=== PATIENT | female | born 1950 | race Caucasian/White ===

== ENCOUNTER 2018-12-30 21:46 | Observation (INO) | payer MEDICARE, BC ==
[2018-12-30] MEDS ORDERED: ONDANSETRON HCL IV 4 MG/2 ML VIAL IVP ONE (21:57)
[2018-12-30] MEDS ORDERED: 0.9 % SODIUM CHLORIDE 1000ML 1,000 ML IV ONE (21:57)
[2018-12-30] MEDS ORDERED: MORPHINE SULFATE 10 MG/ML VIAL IVP ONE (21:57)
--- NOTE | 2018-12-30 21:58 | Emergency Department Record ---
History of Present Illness - General Stated Complaint: ABDOMINAL PAIN Time Seen by Provider: 12/30/18 21:52 Source: Patient, Family, EMS Mode of Arrival: Stretcher - History of Present Illness Initial Comments: 68 yo female presents with diffuse abdominal pain since this morning. She has nausea but denied vomiting. No diarrhea or bowel movement today. She denies a history of abdominal surgery. 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 She does get very anxious with any type of illness that produces crying and anxiety since the stroke. No fevers. MD Complaint: Abdominal pain -: Days(s) (1) Location: Diffuse Radiation: Other Migration to: Other Severity: Moderate Quality: Cramping Consistency: Constant Improves With: Nothing Worsens With: Nothing Associated Symptoms: Dysuria - Related Data Home Medications Medication Instructions Recorded Confirmed Last Taken Amlodipine Besylate [Norvasc] 10 mg PO DAILY 12/31/18 12/31/18 12/30/18 Cyclobenzaprine HCl [Flexeril] 10 mg PO TID PRN MDD pain 12/31/18 12/31/1812/29 Diazepam [Valium] 5 mg PO Q8H PRN 12/31/18 12/31/18 12/30/18 Duloxetine HCl [Cymbalta] 60 mg PO DAILY 12/31/18 12/31/18 12/30/18 Hydrochlorothiazide [Hctz] 25 mg PO DAILY 12/31/18 12/31/18 12/30/18 Lacosamide [Vimpat] 150 mg PO BID 12/31/18 12/31/18 12/30/18 Magnesium 1 tab PO DAILY 12/31/18 12/31/18 12/30/18 Potassium Chloride 20 meq PO DAILY 12/31/18 12/31/18 12/30/18 Pregabalin (Lyrica) 100Mg Cap 100 mg PO BID 12/31/18 12/31/18 12/30/18 [Lyrica] Sertraline HCl [Zoloft] 25 mg PO DAILY 12/31/18 12/31/18 12/30/18 Allergies Allergy/AdvReac Type Severity Reaction Status Date / Time No Known Drug Allergies Allergy Verified 12/30/18 21:56 Review of Systems Constitutional: Denies: Chills, Fever, Malaise, Weakness Eyes: Denies: Eye discharge ENT: Denies: Congestion, Throat pain Respiratory: Denies: Cough, Dyspnea, Hemoptysis, Stridor, Wheezes Cardiovascular: Denies: Chest pain, Palpitations, Syncope Gastrointestinal: Reports: Abdominal pain, Nausea. Denies: Constipation, Diarrhea, Hematemesis, Vomiting Genitourinary: Reports: Dysuria Musculoskeletal: Reports: Back pain. Denies: Arthralgia Skin: Denies: Bruising, Change in color, Rash Neurological: Reports: Headache (yesterday, none today) Psychiatric: Reports: Anxiety (significant) Hematological/Lymphatic: Denies: Easy bleeding, Easy bruising, Swollen glands Physical Exam - General General Appearance: Alert, Oriented x3, Cooperative, Anxious Limitations: No limitations - Head Head exam: Atraumatic, Normal inspection - Eye Eye exam: Normal appearance, PERRL. negative: Conjunctival injection - ENT ENT exam: Normal exam Ear exam: Normal external inspection Nasal Exam: Normal inspection Mouth exam: Normal external inspection Throat exam: Normal inspection - Neck Neck exam: Normal inspection, Full ROM. negative: Tenderness - Respiratory Respiratory exam: Normal lung sounds bilaterally. negative: Respiratory distress - Cardiovascular Cardiovascular Exam: Regular rate, Normal rhythm, Normal heart sounds - GI/Abdominal GI/Abdominal exam: Soft, Tenderness (inconsistently area of tenderness but very soft, no distension, no R or G, intact bowel sounds). negative: Distended, Guarding, Rebound, Rigid - Rectal Rectal exam: Deferred - exam: Deferred - Extremities Extremities exam: Normal inspection - Back Back exam: Denies: CVA tenderness (R), CVA tenderness (L) - Neurological Neurological exam: Alert, Motor sensory deficit (Right sided weakness) - Psychiatric Psychiatric exam: Anxious - Skin Skin exam: Dry, Intact, Normal color, Warm Course Vital Signs 12/30/18 21:51 Temperature 97.5 F L Pulse Rate [ 74 Pulse Ox Probe] Respiratory 24 Rate Blood Pressure 146/84 [Left Arm] Pulse Ox 100 - Reevaluation(s) Reevaluation #1: Vitals reviewed. No significant abnormalities No fever upon arrival 12/30/18 22:26 12/30/18 23:19 The labs were reviewed. No acute significant changes in the CBC, CMP, or Lipase The Lactic Acid is normal 12/30/18 23:21 The patient is slowly improving but still anxious and some waves of pain. 12/31/18 00:27 The UA is negative for any acute issue She is much improved and feeling better 12/31/18 01:[address] scan of the abdomen report was reviewed. No acute inflammatory process in the abdomen or pelvis Large volume or stool retained in the cecum and right colon with fecalization of the distal small bowel CW stasis. No obstruction. Renal lesions noted and recommended follow up. This was discussed with the patient and her . 12/31/18 01:14 Medical Decision Making - Lab Data Result diagrams: 12/30/18 22:50 12/30/18 22:50 Disposition Disposition: Admit Clinical Impression: Constipation Abdominal pain Qualifiers: Abdominal location: generalized Qualified Code(s): R10.84 - Generalized abdominal pain Nausea & vomiting Qualifiers: Vomiting type: unspecified Vomiting Intractability: intractable Qualified Code( s): R11.2 - Nausea with vomiting, unspecified Disposition: Still a Patient at [facility] Decision to Admit: Admit from ER Decision to Admit Date: 12/31/18 Decision to Admit Time: :34 Condition: (1) Good Time of Disposition: 01:34 Quality - Quality Measures Quality Measures: N/A - Blood Pressure Screening Does Patient Have Any of the Following: Active Dx of HTN Blood Pressure Classification: Normal BP Reading Systolic Measurement: 105 Diastolic Measurement: 48 Screening for High Blood Pressure: Patient Exclusion, Hx of HTN [[id number]]
[2018-12-30] MEDS ORDERED: MORPHINE SULFATE 10 MG/ML VIAL IM ONE (22:25)
[2018-12-30] MEDS ORDERED: ONDANSETRON 4 MG ODT TABLET SL ONE (22:25)
[2018-12-30 22:54] LABS: BASO % 0.4 % (0-6); EOS % 0.1 % (0-6); HEMATOCRIT 41.9 % (35.0-47.0); HEMOGLOBIN 13.8 gm/dl (11.6-16.0); LYMPH % 8.9 % (16-45); MEAN CELL VOLUME 85.7 fl (81-97); MEAN CORPUSCULAR HEMOGLOBIN 28.2 pg (27-33); MEAN CORPUSCULAR HGB CONC 32.9 g/dl (32-36); MEAN PLATELET VOLUME 11.1 fl (7.4-10.4); MONO % 4.1 % (0-9); PLATELET COUNT 266 K/uL (130-400); RED BLOOD COUNT 4.89 M/uL (3.80-5.40); WHITE BLOOD COUNT W/O DIFF 11.2 K/uL (4.2-12.2)
[2018-12-30 23:03] LABS: BLOOD UREA NITROGEN 25 mg/dL (8-23); CREATININE 0.8 mg/dL (0.5-0.9); EST GLOMERULAR FILTRATION RATE > 60 mL/min
[2018-12-30 23:04] LABS: LIPASE 21 U/L (13-60); TOTAL PROTEIN 8.1 g/dL (6.6-8.7)
[2018-12-30 23:05] LABS: PARTIAL THROMBOPLASTIN TIME 23.9 SECONDS (24.5-39.1)
[2018-12-30 23:06] LABS: GLUCOSE,RANDOM 161 mg/dL (74-109)
[2018-12-30 23:08] LABS: ALB/GLOB RATIO 1.4 (1.1-1.8); ALBUMIN 4.7 g/dL (4.0-5.0); ALKALINE PHOSPHATASE 102 U/L (35-104); ALT/SGPT 14 U/L (<33); AST/SGOT 17 U/L (10.0-35.0)
[2018-12-30] MEDS ORDERED: LORAZEPAM 2 MG/ML VIAL IV ONE (23:18)
[2018-12-31 00:10] LABS: URINE APPEARANCE CLEAR; URINE BILIRUBIN NEGATIVE (NEGATIVE); URINE BLOOD NEGATIVE (NEGATIVE); URINE COLOR YELLOW; URINE GLUCOSE (UA) NEGATIVE (NEGATIVE); URINE KETONE NEGATIVE (NEGATIVE); URINE LEUKOCYTE ESTERASE NEGATIVE (NEGATIVE); URINE NITRITE NEGATIVE (NEGATIVE); URINE PROTEIN NEGATIVE (NEGATIVE); URINE UROBILINOGEN 0.2 E.U./dL (0.20 - 1.00)
[2018-12-31] MEDS ORDERED: ONDANSETRON HCL IV 4 MG/2 ML VIAL IVP PRN (02:00)
[2018-12-31] MEDS ORDERED: CYCLOBENZAPRINE 10MG TABLET PO PRN (02:00)
[2018-12-31] MEDS ORDERED: LORAZEPAM 2 MG/ML VIAL IV PRN (02:00)
[2018-12-31] MEDS ORDERED: ACETAMINOPHEN 1,000 MG/100 ML BTL IVPB ONE (02:00)
[2018-12-31] MEDS: 0.9 % SODIUM CHLORIDE 1000ML 1,000 ML IV PRN ×2 (02:39→12:17)
--- NOTE | 2018-12-31 08:14 | CT SCAN REPORT ---
EXAM: CT OF THE ABDOMEN AND PELVIS WITHOUT CONTRAST HISTORY: GENERALIZED ABDOMINAL PAIN BEGINNING TWO DAYS AGO. PAINFUL URINATION. STATUS POST BILATERAL HIP ARTHROPLASTY, CHOLECYSTECTOMY, APPENDECTOMY, HYSTERECTOMY, AND SPINAL FUSION. TECHNIQUE: Helical CT examination of the abdomen and pelvis was performed without intravenous contrast administration. Oral contrast was utilized. Comparison: Single view radiographic examination of the spine dated 06/03/11. FINDINGS: Beam hardening artifact from orthopedic hardware within the spine as well as beam hardening artifact from implanted medication pump in the right gluteal soft tissues mildly limits evaluation. There is minor dependent atelectasis in each lung base. The lung bases are otherwise clear. No pleural or pericardial effusion. There is possible mild calcification of the aortic valve. No suspicious focal abnormality is demonstrated within the liver, spleen, pancreas, adrenal glands nor right kidney. There is a well circumscribed hypodense mass within the posterolateral mid left kidney. This measures 3.0 x 3.2 cm. This has a density ranging between 16 and 27 Hounsfield units. Its evaluation is limited by the presence of artifact. A benign cyst is the most likely etiology. If clinically warranted this could be further evaluated with ultrasound examination. Additionally there is a questionable isodense contour deforming mass versus lobulation arising from the medial lower pole of the left kidney. This measures 7 mm. It it too small for accurate characterization. The gallbladder is surgically absent. No gross biliary ductal dilatation is seen. No definite intraabdominal nor retroperitoneal lymphadenopathy. No abdominal aortic aneurysm. There is a small fat filled periumbilical hernia. No definite pelvic mass, lymphadenopathy, or free pelvic fluid though again, evaluation is limited by beam hardening artifact from bilateral hip prostheses. Evaluation of the urinary bladder is limited. No large urinary bladder mass identified. No free pelvic fluid. No gross bowel dilatation nor bowel wall thickening. There is a moderate to large amount of stool within the colon. There is fecalization of stool within the distal small bowel consistent with stasis. The appendix is surgically absent. Spinal fixation hardware is again noted extending from the visualized mid thoracic level down to the upper sacrum. Bilateral hip protheses are present. Incompletely imaged is an interspinal catheter which extends from the right gluteal region superiorly. On prior radiographic examination this is noted to extend into the thoracic spinal canal at the lower thoracic levels. The implanted pump is demonstrated within the right gluteal soft tissues. No suspicious lytic or blastic bone lesion. IMPRESSION: 1. NO DEFINITE ACUTE ABNORMALITY OF THE ABDOMEN NOR PELVIS THOUGH EVALUATION IS LIMITED, DISCUSSED ABOVE. 2. MODERATE TO LARGE AMOUNT OF STOOL WITHIN THE COLON WITH FECALIZATION OF CONTENTS OF THE DISTAL SMALL BOWEL CONSISTENT WITH STASIS. NO EVIDENCE OF MECHANICAL BOWEL OBSTRUCTION. 3. LOW DENSITY MASS IN THE LEFT KIDNEY LIKELY IS A BENIGN CYST. THERE IS AN ADDITIONAL ISODENSE NODULE ARISING EXOPHYTICALLY FROM THE LOWER POLE OF THE LEFT KIDNEY. THIS IS OF INDETERMINATE ETIOLOGY. IF CLINICALLY WARRANTED THIS COULD BE FURTHER EVALUATED WITH PRE AND POST CONTRAST ADMINISTRATION MRI OR CT EXAMINATION. JOB NUMBER: [id number] [facility]
--- NOTE | 2018-12-31 08:23 | History & Physical ---
History of Present Illness - Date of Service Date of Service for History & Physical: 12/31/18 - History of Present Illness Admitting Diagnosis: nausea, vomiting, and abdominal pain History of Present Illness: 68 yo female presents for abd pain. PMH HTN, CVA with right sided weakness, anxiety/depression. Prior Surgeries: hysterectomy, appendectomy, cholecystectomy , spinal fusion, spinal stimulator, raj hip replacements. 12/30/18 Pt presented to [facility] ER for diffuse abd pain and nausea, denied any vomiting or diarrhea. CT reveals large amt of retained stool and raj kidney cysts (to be followed with repeat CT or MRI by PCP) WBC 11.2, Hgb 13.8, Hct 41.9, Plt 266 PT 10, INT 1, APPT 23.9 Na 143, K 3.4, Cl 103, Anion Gap 16, BUN 25, Cr 0.8, GFR >60, glucose 161, LFTs wnl Lactic Acid 1.7, Lipase 21 UA negative Pt given 1L NS, ativan 0.5mg IVP (pt anxious, tearful and crying in ER), Morphine 5mg OVP x2, 1gm tylneol IVPB, zofran 4mg X2 Admit for abd pain, constipation, and nausea 12/31/18 Pt resting with eyes closed in bed, no acute distress, not tearful on first assessment. Pt reports that she thought she was going home this AM, but updated that CT shows large amount of stool burden and it is suspected as the cause for her generalized abd pain. POC to facilitate several large bowel movements and then D/C home. Pt given MOM with prune juice this AM, if no stool then can given suppository and miralax. Pt has right sided weakness s/p CVA 10/2016, there fore will need q2 turns and right foot elevated off bed. Pt up with gait belt, cane and reports that she has a right leg AFO (ankle/foot orthosis). Pt nursing staff, pt became overwhelmed and anxious. Pt and had reported (during ER visit) that pt become very anxious and tearful since CVA. Ativan changed from IVP to PO. Will continue to monitor progress and pt can d/c after successful bowel evacuation. PCP [facility] Travel Screening - Travel/Exposure Within Last 30 Days Have you traveled within the last 30 days?: No - Travel/Exposure Within Last Year Have you traveled outside the [place] in the last year?: No - Additonal Travel Details Have you been exposed to anyone with a communicable illness?: No - Travel Symptoms Symptom Screening: None Review of Systems Constitutional: Denies: Chills, Fever, Malaise, Weakness Eyes: Denies: Eye discharge ENT: Denies: Congestion, Throat pain Respiratory: Denies: Cough, Dyspnea, Hemoptysis, Stridor, Wheezes Cardiovascular: Denies: Chest pain, Palpitations, Syncope Gastrointestinal: Reports: Abdominal pain, Nausea. Denies: Constipation, Diarrhea, Hematemesis, Vomiting Genitourinary: Reports: Dysuria Musculoskeletal: Reports: Back pain. Denies: Arthralgia Skin: Denies: Bruising, Change in color, Rash Neurological: Reports: Headache (yesterday, none today) Psychiatric: Reports: Anxiety (significant) Hematological/Lymphatic: Denies: Easy bleeding, Easy bruising, Swollen glands Past Medical History - SOCIAL HISTORY Smoking Status: Never smoker Alcohol Use: Occasional Drug Use: None - RESPIRATORY Hx Respiratory Disorders: Yes Hx Sleep Apnea: Yes (central) - CARDIOVASCULAR Hx Cardio Disorders: No - NEURO Hx CVA: Yes - GI Hx GI Disorders: No - Hx Genitourinary Disorders: No - ENDOCRINE Hx Endocrine Disorders: No - PSYCH Hx Psych Problems: Yes Hx Anxiety: Yes - HEMATOLOGY/ONCOLOGY Hx Hematology/Oncology Disorders: No Family Medical History Any Significant Family History?: No H&P Meds/Allergies - Allergies Allergies: Allergies Allergy/AdvReac Type Severity Reaction Status Date / Time No Known Drug Allergies Allergy Verified 12/30/18 21:56 - Home Medications Home Medications Medication Instructions Recorded Confirmed Last Taken Amlodipine Besylate [Norvasc] 10 mg PO DAILY 12/31/18 12/31/18 12/30/18 Cyclobenzaprine HCl [Flexeril] 10 mg PO TID PRN MDD pain 12/31/18 12/31/1812/29 Diazepam [Valium] 5 mg PO Q8H PRN 12/31/18 12/31/18 12/30/18 Duloxetine HCl [Cymbalta] 60 mg PO DAILY 12/31/18 12/31/18 12/30/18 Hydrochlorothiazide [Hctz] 25 mg PO DAILY 12/31/18 12/31/18 12/30/18 Lacosamide [Vimpat] 150 mg PO BID 12/31/18 12/31/18 12/30/18 Magnesium 1 tab PO DAILY 12/31/18 12/31/18 12/30/18 Potassium Chloride 20 meq PO DAILY 12/31/18 12/31/18 12/30/18 Pregabalin (Lyrica) 100Mg Cap 100 mg PO BID 12/31/18 12/31/18 12/30/18 [Lyrica] Sertraline HCl [Zoloft] 25 mg PO DAILY 12/31/18 12/31/18 12/30/18 - Active Medications Active Medications: Current Medications Amlodipine Besylate (Norvasc) 10 mg PO DAILY [facility] Cyclobenzaprine HCl (Flexeril) 10 mg PO TID PRN PRN Reason: ANESTHESIA Duloxetine HCl (Cymbalta) 60 mg PO DAILY [facility] Sodium Chloride () 1,000 mls @ 100 mls/hr IV .Q10H PRN PRN Reason: LARGE VOLUME IV Last Admin: 12/31/18 02:39 Dose: 100 mls/hr Lorazepam (Ativan) 0.5 mg IV Q8H PRN PRN Reason: ANXIETY Magnesium Oxide (Mag Ox) 200 mg PO DAILY [facility] Non-Formulary Medication (Lacosamide [Vimpat]) 150 mg PO BID [facility] Ondansetron HCl (Zofran) 4 mg IVP Q4H PRN PRN Reason: NAUSEA Polyethylene Glycol (Miralax) 17 gm PO DAILY [facility] Potassium Chloride (Klor-Con) 20 meq PO DAILY [facility] Pregabalin (Lyrica) 100 mg PO BID [facility] Sertraline HCl (Zoloft) 25 mg PO DAILY [facility] Physical Exam - Vital Signs Vital Signs: Vital Signs - Last 24 Hrs Temp Pulse Pulse Resp BP Pulse Ox 12/31/18 03:23 67 74 18 12/31/18 02:00 98.1 F 74 18 105/48 95 12/31/18 01:53 78 20 119/65 95 12/31/18 00:49 79 20 118/69 96 12/30/18 23:05 76 20 145/78 99 12/30/18 21:51 97.5 F L 74 24 146/84 100 - General General Appearance: Alert, Oriented x3, Cooperative, No acute distress Limitations: No limitations - Head Head exam: Atraumatic, Normal inspection - Eye Eye exam: Normal appearance, PERRL. negative: Conjunctival injection - ENT ENT exam: Normal exam Ear exam: Normal external inspection Nasal Exam: Normal inspection Mouth exam: Normal external inspection Throat exam: Normal inspection - Neck Neck exam: Normal inspection, Full ROM. negative: Tenderness - Respiratory Respiratory exam: Normal lung sounds bilaterally. negative: Respiratory distress - Cardiovascular Cardiovascular Exam: Regular rate, Normal rhythm, Normal heart sounds, Systolic murmur Peripheral Pulses: 3+: Radial (R), Radial (L), Dorsalis Pedis (R), Dorsalis Pedis (L) - GI/Abdominal GI/Abdominal exam: Soft, Normal bowel sounds, Tenderness (inconsistently area of tenderness but very soft, no distension, no R or G, intact bowel sounds). negative: Distended, Guarding, Rebound, Rigid - Rectal Rectal exam: Deferred - exam: Deferred - Extremities Extremities exam: Normal inspection - Back Back exam: Denies: CVA tenderness (R), CVA tenderness (L) - Neurological Neurological exam: Alert, Motor sensory deficit (Right sided weakness) - Psychiatric Psychiatric exam: Normal affect, Normal mood - Skin Skin exam: Dry, Intact, Normal color, Warm Results - Labs Result Diagrams: 12/30/18 22:50 12/30/18 22:50 Labs Last 24 Hours: Laboratory Results - last 24 hr 12/30/18 12/30/18 12/30/18 22:50 22:50 22:50 WBC 11.2 RBC 4.89 Hgb 13.8 Hct 41.9 MCV 85.7 MCH 28.2 MCHC 32.9 RDW 14.0 Plt Count 266 MPV 11.1 H Neutrophils % 83.0 H Band Neutrophils % 3.0 Lymphocytes % 8.9 L Monocytes % 4.1 Eosinophils % 0.1 Basophils % 0.4 Lymphocytes 10.0 L Monocytes 4.0 Basophils 0.0 Eosinophil Count 0.0 PT 10.0 INR 1.0 APTT 23.9 L Sodium 143 Potassium 3.4 Chloride 103 Carbon Dioxide 24.0 Anion Gap 16.0 BUN 25 H Creatinine 0.8 Estimated GFR > 60 Random Glucose 161 H Lactic Acid Cancelled Calcium 10.6 H Total Bilirubin 0.20 AST 17 ALT 14 Alkaline Phosphatase 102 Total Protein 8.1 Albumin 4.7 Globulin 3.4 Albumin/Globulin Ratio 1.4 Lipase 21 Urine Color Urine Appearance Urine pH Ur Specific [place] Urine Protein Urine Glucose (UA) Urine Ketones Urine Blood Urine Nitrite Urine Bilirubin Urine Urobilinogen Ur Leukocyte Esterase 12/30/18 12/31/18 22:50 00:11 WBC RBC Hgb Hct MCV MCH MCHC RDW Plt Count MPV Neutrophils % Band Neutrophils % Lymphocytes % Monocytes % Eosinophils % Basophils % Lymphocytes Monocytes Basophils Eosinophil Count PT INR APTT Sodium Potassium Chloride Carbon Dioxide Anion Gap BUN Creatinine Estimated GFR Random Glucose Lactic Acid 1.7 Calcium Total Bilirubin AST ALT Alkaline Phosphatase Total Protein Albumin Globulin Albumin/Globulin Ratio Lipase Urine Color Yellow Urine Appearance Clear Urine pH 7.5 Ur Specific [place] 1.015 Urine Protein Negative Urine Glucose (UA) Negative Urine Ketones Negative Urine Blood Negative Urine Nitrite Negative Urine Bilirubin Negative Urine Urobilinogen 0.2 Ur Leukocyte Esterase Negative - Imaging and Cardiology CT scan - chest Status: Report reviewed VTE H&P Assessment - Risk for VTE Risk for VTE: Yes Risk Level: Moderate Risk Assessment Date: 12/31/18 Risk Assessment Time: 09:59 VTE Orders Placed or Will Be Placed: Yes Plan - Detailed Diagnosis and Plan (1) Abdominal pain Current Visit: Yes Status: Acute Qualifiers: Abdominal location: generalized Qualified Code(s): R10.84 - Generalized abdominal pain Base Code: R10.9 - UNSPECIFIED ABDOMINAL PAIN Comment: 12/31/18 -Pt denies abd pain during AM rounding -CT shows large amt of stool burden -pt was given morphine IVP in ER but no pain this AM -starting bowel regimen (2) Constipation Current Visit: Yes Status: Acute Base Code: K59.00 - CONSTIPATION, UNSPECIFIED Comment: 12/31/18 -pt reports small, firm stools for the past several days, no h/o constipation issues -CT shows lg amt stool -given MOM with prune juice this AM, then to have suppository and miralax if not BM (3) Nausea & vomiting Current Visit: Yes Status: Acute Qualifiers: Vomiting type: unspecified Vomiting Intractability: intractable Qualified Code(s): R11.2 - Nausea with vomiting, unspecified Base Code: R11.2 - NAUSEA WITH VOMITING, UNSPECIFIED Comment: 12/31/18 -pt denies N/V this am -tolerating CLD and MOM with prune juice -Zofran PRN available (4) DVT prophylaxis Current Visit: Yes Status: Acute Base Code: [id number] - Comment: 12/31/18 -lovenox 40mg SQ to start tomorrow if pt does not D/C today -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
[2018-12-31] MEDS ORDERED: MAGNESIUM HYDROXIDE 30 ML UDC PO ONE ×2 (08:42→15:13)
[2018-12-31] MEDS ORDERED: BISACODYL 10 MG SUPP RC PRN (09:33)
[2018-12-31] MEDS ORDERED: LORAZEPAM 0.5 MG TABLET PO PRN (09:45)
[2018-12-31] MEDS ORDERED: PREGABALIN (LYRICA) 100MG CAPSULE PO SCH (10:00)
[2018-12-31] MEDS ORDERED: MAGNESIUM OXIDE 400 MG TABLET PO SCH (10:00)
[2018-12-31] MEDS ORDERED: AMLODIPINE BESYLATE 5MG TAB PO SCH (10:00)
[2018-12-31] MEDS ORDERED: DULOXETINE HCL 30 MG CAPSULE.DR PO SCH (10:00)
[2018-12-31] MEDS ORDERED: LACOSAMIDE 150 MG PO SCH (10:00)
[2018-12-31] MEDS ORDERED: POLYETHYLENE GLY 17 GM PACKET PO SCH (10:00)
[2018-12-31] MEDS ORDERED: SERTRALINE HCL 50 MG TABLET PO SCH (10:00)
[2018-12-31] MEDS ORDERED: POTASSIUM CHLORIDE 20 MEQ TABLET PO SCH (10:00)
--- NOTE | 2018-12-31 19:42 | Discharge Summary ---
Providers Discharge Summary Date: 12/31/18 Date of admission: 12/31/18 01:55 Expected Date of Discharge: 12/31/18 Attending physician: JANICE CHAMBERS Primary care physician: RJ BERNSTEIN M.D. Physical Exam - Vital Signs Vital Signs: Vital Signs - Last 24 Hrs Temp Pulse Pulse Resp BP Pulse Ox 12/31/18 18:00 98.4 F 78 16 111/60 96 12/31/18 10:00 98.1 F 75 17 106/58 98 12/31/18 09:00 67 75 17 12/31/18 03:23 67 74 18 12/31/18 02:00 98.1 F 74 18 105/48 95 12/31/18 01:53 78 20 119/65 95 12/31/18 00:49 79 20 118/69 96 12/30/18 23:05 76 20 145/78 99 12/30/18 21:51 97.5 F L 74 24 146/84 100 - General General Appearance: Alert, Oriented x3, Cooperative, No acute distress Limitations: Physical limitation (right sided weakness sp cva) - Head Head exam: Atraumatic, Normal inspection - Eye Eye exam: Normal appearance, PERRL. negative: Conjunctival injection - ENT ENT exam: Normal exam Ear exam: Normal external inspection Nasal Exam: Normal inspection Mouth exam: Normal external inspection Throat exam: Normal inspection - Neck Neck exam: Normal inspection, Full ROM. negative: Tenderness - Respiratory Respiratory exam: Normal lung sounds bilaterally. negative: Respiratory distress - Cardiovascular Cardiovascular Exam: Regular rate, Normal rhythm, Normal heart sounds, Systolic murmur Peripheral Pulses: 3+: Radial (R), Radial (L), Dorsalis Pedis (R), Dorsalis Pedis (L) - GI/Abdominal GI/Abdominal exam: Soft, Normal bowel sounds, Tenderness (inconsistently area of tenderness but very soft, no distension, no R or G, intact bowel sounds). negative: Distended, Guarding, Rebound, Rigid - Rectal Rectal exam: Deferred - exam: Deferred - Extremities Extremities exam: Normal inspection - Back Back exam: Denies: CVA tenderness (R), CVA tenderness (L) - Neurological Neurological exam: Alert, Motor sensory deficit (Right sided weakness) - Psychiatric Psychiatric exam: Normal affect, Normal mood - Skin Skin exam: Dry, Intact, Normal color, Warm Hospitalization - Hospitalization Admission Diagnosis: nausea, vomiting, and abdominal pain - Problem List/Discharge Diagnosis (1) Abdominal pain Current Visit: Yes Status: Acute Discharge Diagnosis: Abdominal location: generalized Qualified Code(s): R10.84 - Generalized abdominal pain Base Code: R10.9 - UNSPECIFIED ABDOMINAL PAIN Comment: 12/31/18 -Pt denies abd pain during AM rounding -CT shows large amt of stool burden -pt was given morphine IVP in ER but no pain this AM -starting bowel regimen -pt had 2 large bms, req d/c home with (2) Constipation Current Visit: Yes Status: Acute Base Code: K59.00 - CONSTIPATION, UNSPECIFIED Comment: 12/31/18 -pt reports small, firm stools for the past several days, no h/o constipation issues -CT shows lg amt stool -given MOM with prune juice this AM, then to have suppository and miralax if no BM -2 lrg bms, d/c (3) Nausea & vomiting Current Visit: Yes Status: Acute Discharge Diagnosis: Vomiting type: unspecified Vomiting Intractability: intractable Qualified Code(s): R11.2 - Nausea with vomiting, unspecified Base Code: R11.2 - NAUSEA WITH VOMITING, UNSPECIFIED Comment: 12/31/18 -pt denies N/V this am -tolerating CLD and MOM with prune juice -Zofran PRN available but not req ad pt tolerating po intake - (4) DVT prophylaxis Current Visit: Yes Status: Acute Base Code: [id number] - Comment: 12/31/18 -lovenox 40mg SQ to start tomorrow if pt does not D/C today -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 PMH HTN, CVA with right sided weakness, anxiety/depression. Prior Surgeries: hysterectomy, appendectomy, cholecystectomy , spinal fusion, spinal stimulator, raj hip replacements. 12/30/18 Pt presented to [facility] ER for diffuse abd pain and nausea, denied any vomiting or diarrhea. CT reveals large amt of retained stool and raj kidney cysts (to be followed with repeat CT or MRI by PCP) WBC 11.2, Hgb 13.8, Hct 41.9, Plt 266 PT 10, INT 1, APPT 23.9 Na 143, K 3.4, Cl 103, Anion Gap 16, BUN 25, Cr 0.8, GFR >60, glucose 161, LFTs wnl Lactic Acid 1.7, Lipase 21 UA negative Pt given 1L NS, ativan 0.5mg IVP (pt anxious, tearful and crying in ER), Morphine 5mg OVP x2, 1gm tylneol IVPB, zofran 4mg X2 Admit for abd pain, constipation, and nausea 12/31/18 Pt resting with eyes closed in bed, no acute distress, not tearful on first assessment. Pt reports that she thought she was going home this AM, but updated that CT shows large amount of stool burden and it is suspected as the cause for her generalized abd pain. POC to facilitate several large bowel movements and then D/C home. Pt given MOM with prune juice this AM, if no stool then can given suppository and miralax. Pt has right sided weakness s/p CVA 10/2016, there fore will need q2 turns and right foot elevated off bed. Pt up with gait belt, cane and reports that she has a right leg AFO (ankle/foot orthosis). Pt nursing staff, pt became overwhelmed and anxious. Pt and had reported (during ER visit) that pt become very anxious and tearful since CVA. Ativan changed from IVP to PO. Will continue to monitor progress and pt can d/c after successful bowel evacuation. PCP [facility] Procedures: Imaging and X-Rays 12/30/18 21:55 ABDOMEN/PELVIS WO CONTRAST [CT] Stat Cardiology Procedures 12/30/18 23:18 Academic Department Chair NOW 12/31/18 02:00 Academic Department Chair .Continuous Abnormal Labs: Abnormal Lab Results 12/30/18 12/30/18 12/30/18 Range/Units 22:50 22:50 22:50 MPV 11.1 H (7.4-10.4) fl Neutrophils % 83.0 H (47-80) % Lymphocytes % 8.9 L (16-45) % Lymphocytes 10.0 L (16-45) % APTT 23.9 L (24.5-39.1) SECONDS BUN 25 H (8-23) mg/dL Random Glucose 161 H (74-109) mg/dL Calcium 10.6 H (8.8-10.2) mg/dL Condition at Discharge: (2) Stable Discharge Medications - Discharge Medications Home Medications: Ambulatory Orders Amlodipine Besylate [Norvasc] 10 mg PO DAILY 12/31/18 [Last Taken 12/30/18] Cyclobenzaprine HCl [Flexeril] 10 mg PO TID PRN MDD pain 12/31/18 [Last Taken ] Diazepam [Valium] 5 mg PO Q8H PRN 12/31/18 [Last Taken 12/30/18] Duloxetine HCl [Cymbalta] 60 mg PO DAILY 12/31/18 [Last Taken 12/30/18] Hydrochlorothiazide [Hctz] 25 mg PO DAILY 12/31/18 [Last Taken 12/30/18] Lacosamide [Vimpat] 150 mg PO BID 12/31/18 [Last Taken 12/30/18] Magnesium 1 tab PO DAILY 12/31/18 [Last Taken 12/30/18] Potassium Chloride 20 meq PO DAILY 12/31/18 [Last Taken 12/30/18] Pregabalin (Lyrica) 100Mg Cap [Lyrica] 100 mg PO BID 12/31/18 [Last Taken ] Sertraline HCl [Zoloft] 25 mg PO DAILY 12/31/18 [Last Taken 12/30/18] Discharge Plan - Discharge Instructions Activity at Discharge: Increase Activity as Tolerated Diet at Discharge: Advance to Usual Diet Additional Instructions: Follow up with pcp in 1-2 weeks. Return to ER for return of abdominal pain Quality Measures - Quality Measures Quality Measures: Advance Directives, Documentation of Current Medications in Medical Record, Elder Maltreatment Screen and Follow-Up Plan, Screening for High Blood Pressure and F/U Documented - Current Medications Quality Measure: Measure #130: Documentation of Current Medications Documentation of Current Medications: <Current Medications Documented/Reviewed> [[id number]] - Blood Pressure Screening Quality Measure: Screening for High Blood Pressure and Follow-Up Documented Does Patient Have Any of the Following: Active Dx of HTN Blood Pressure Classification: Normal BP Reading Systolic Measurement: 111 Diastolic Measurement: 60 Screening for High Blood Pressure: Patient Exclusion, Hx of HTN [G9744] - Advance Directives Quality Measure: Measure #47: Care Plan Advance Directives Established: No Advance Directives Information Provided To Patient: No Advance Directives on File: No Advance Care Planning: Not Discussed or Documented [[id number]] - Elder Abuse Suspicion Index Screening: Elder Abuse Suspicion Index Screening Rely on people for bathing, dressing, shopping, banking, etc: Yes Prevented from getting food, clothes, medication, etc: No Made to feel shamed or threatened by someone: No Forced to sign papers or use money against will: No Feel afraid, touched in ways not wanted or hurt physically: No Poor eye contact, withdrawn, malnourished, cuts or bruises: No Screening Result: Negative result EASI Reference Information: Chrystal KURTZ, Gisel C, Michael D, Jaci Bryan.Development and validation of a tool to assist physicians identification of elder abuse: The Elder Abuse Suspicion Index (EASI ). Journal of Elder Abuse and Neglect, 2008; 20 (3): 276-300. - Elder Maltreatment Screen Quality Measures: Elder Maltreatment Screen and Follow-Up Plan Elder Maltreatment Screen: <Negative, No Follow-Up Plan Required> [G8765]
[2019-01-01] MEDS ORDERED: ENOXAPARIN 40 MG/0.4 ML SYR SQ SCH (10:00)
== END 2018-12-31 21:00 | disposition home or self-care (01) ==
LOC: ER 21:46 → MEDSURG 12-31 01:55
PROVIDERS: ADMIT Internal Medicine; ATTEND Internal Medicine
DX: K59.00 Constipation, unspecified (principal); R11.2 Nausea with vomiting, unspecified; G47.33 Obstructive sleep apnea (adult) (pediatric); Z90.49 Acquired absence of other specified parts of digestive tract; I69.354 Hemiplegia and hemiparesis following cerebral infarction affecting left non-dominant side
CPT/HCPCS: 99285 ×2; 96374; 96375; 96361; 83605; 83690; 85730; 85610; 80053; 81003; 85027; 74176; G0378; J2060; J2270; 99236; J7030